=== PATIENT | female | born 1970 | race African-American/Black ===

== ENCOUNTER 2019-07-28 21:27 | Emergency (ER) | payer OTHER ==
[~2019-07-28] VITALS: Ht 162.6 cm; Wt 100.7 kg
[2019-07-28 21:38] VITALS: Ht 162.6 cm; Wt 100.7 kg
[2019-07-28 22:11] VITALS: BP 114/67
== END 2019-07-28 22:11 | disposition home or self-care (01) ==
LOC: ED 21:27
DX: L03.116 Cellulitis of left lower limb (principal); L03.115 Cellulitis of right lower limb; W57.XXXA Bitten or stung by nonvenomous insect and other nonvenomous arthropods, initial encounter; Y93.89 Activity, other specified; Y92.89 Other specified places as the place of occurrence of the external cause; Y99.8 Other external cause status